=== PATIENT | male | born 1990 | race Hispanic/Latino ===

== ENCOUNTER 2019-07-20 10:37 | Emergency (ER) | payer OTHER ==
[~2019-07-20] VITALS: Ht 177.8 cm; Wt 80.2 kg
[2019-07-20 10:37] VITALS: BP 128/85
[2019-07-20] MEDS ORDERED: AMOX875T PO (10:44)
[2019-07-20] MEDS ORDERED: CIPRODEX AD ×3 (11:05→11:29)
== END 2019-07-20 11:32 | disposition home or self-care (01) ==
LOC: M ED 10:37
DX: H92.09 Otalgia, unspecified ear (principal); H66.91 Otitis media, unspecified, right ear